=== PATIENT | male | born 1980 | race Caucasian/White ===

== ENCOUNTER 2018-01-18 20:33 | Emergency (ER) | payer OTHER ==
[2018-01-18 20:45] VITALS: BP 106/74; PULSE 67; RESP 16; TEMP 97.9
[2018-01-18] MEDS ORDERED: predniSONE 20 MG TAB PO STA (21:13)
[2018-01-18] MEDS ORDERED: IBUPROFEN 800 MG TAB PO STA (21:13)
--- NOTE | 2018-01-18 21:18 | ED ---
General Adult HPI - General Chief complaint: Extremity Problem,Nontraumatic Stated complaint: arm numbness Time Seen by Provider: 01/18/18 20:42 Source: patient, RN notes reviewed, old records reviewed Mode of arrival: ambulatory Limitations: no limitations - History of Present Illness Initial comments: This is a 29-year-old male to the ER with right elbow pain right arm swelling. Patient has no other medical issues medical injury. 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 Patient states he started to develop right elbow pain. No modifying factors for injury, no trauma - Related Data Previous Rx's Medication Instructions Recorded HYDROcodone/APAP 5-325MG [[place] 5] 1 each PO Q4HR PRN #15 tab 01/10/15 Ibuprofen [Motrin] 600 mg PO Q6HR PRN #30 01/10/15 Ibuprofen [Motrin] 600 mg PO Q8HR #60 tab 01/18/18 predniSONE 50 mg PO DAILY #5 tab 01/18/18 Allergies Allergy/AdvReac Type Severity Reaction Status Date / Time No Known Allergies Allergy Verified 01/18/18 20:45 Review of Systems ROS Statement: Those systems with pertinent positive or pertinent negative responses have been documented in the HPI. ROS Other: All systems not noted in ROS Statement are negative. Past Medical History Past Medical History: No Reported History Additional Past Medical History / Comment(s): chronic back pain History of Any Multi-Drug Resistant Organisms: None Reported Past Surgical History: No Surgical Hx Reported Past Psychological History: No Psychological Hx Reported Smoking Status: Current every day smoker Past Alcohol Use History: Occasional Past Drug Use History: None Reported General Exam Limitations: no limitations General appearance: alert, in no apparent distress Head exam: Present: atraumatic, normocephalic, normal inspection Eye exam: Present: normal appearance, PERRL, EOMI. Absent: scleral icterus, conjunctival injection, periorbital swelling ENT exam: Present: normal exam, mucous membranes moist Neck exam: Present: normal inspection. Absent: tenderness, meningismus, lymphadenopathy Respiratory exam: Present: normal lung sounds bilaterally. Absent: respiratory distress, wheezes, rales, rhonchi, stridor Cardiovascular Exam: Present: regular rate, normal rhythm, normal heart sounds. Absent: systolic murmur, diastolic murmur, rubs, gallop, clicks GI/Abdominal exam: Present: soft, normal bowel sounds. Absent: distended, tenderness, guarding, rebound, rigid Extremities exam: Present: normal inspection, full ROM, normal capillary refill. Absent: tenderness, pedal edema, joint swelling, calf tenderness Back exam: Present: normal inspection Neurological exam: Present: alert, oriented X3, CN II-XII intact Psychiatric exam: Present: normal affect, normal mood Skin exam: Present: warm, dry, intact, normal color. Absent: rash Course Vital Signs 01/18/18 20:41 Temperature 97.9 F Pulse Rate 67 Respiratory 16 Rate Blood Pressure 106/74 O2 Sat by Pulse 98 Oximetry Medical Decision Making - Medical Decision Making 37 male the ER for evaluation of right elbow injury, patient does have to sign out elbow, no trauma noted x-ray negative. Patient will be discharged home - Radiology Data Radiology results: report reviewed (X-ray right elbow negative), image reviewed Disposition Clinical Impression: Golfers elbow of right upper extremity, Right tennis elbow Disposition: HOME SELF-CARE Condition: Good Instructions: Tennis Elbow (ED), Tendinitis (ED) Prescriptions: Ibuprofen [Motrin] 600 mg PO Q8HR #60 tab predniSONE 50 mg PO DAILY #5 tab Is patient prescribed a controlled substance at d/c from ED?: No Referrals: None,Stated [Primary Care Provider] - 1-2 days
--- NOTE | 2018-01-18 21:40 | XR ---
EXAMINATION TYPE: XR elbow complete RT DATE OF EXAM: 01/18/2018 COMPARISON: NONE HISTORY: Elbow pain TECHNIQUE: 3 views FINDINGS: I see no fracture nor dislocation. Joint spaces are normal. There is no sign of elbow joint effusion. IMPRESSION: Negative right elbow exam.
== END 2018-01-18 22:00 | disposition home or self-care (01) ==
LOC: EC 20:33
DX: M77.01 Medial epicondylitis, right elbow (principal); M77.11 Lateral epicondylitis, right elbow; F17.200 Nicotine dependence, unspecified, uncomplicated
CPT/HCPCS: 73080; 99284; J7512

== ENCOUNTER 2018-08-17 22:08 | Emergency (ER) | payer OTHER ==
[2018-08-17] MEDS: SODIUM CHLORIDE 0.9% 500 ML 500 ML IV SCH (22:59)
[2018-08-17] MEDS: PIPERACILLIN-TAZOBACTAM 3.375 GM in SODIUM CHLORIDE 0.9% 100 ML IVPB STA (22:59)
[2018-08-17 23:01] LABS: Basophils # (A) 0.1 k/uL (0-0.2); Basophils % (A) 0 %; Eosinophils # (A) 0.1 k/uL (0-0.7); Eosinophils % (A) 0 %; HCT 48.7 % (39.0-53.0); HGB 16.4 gm/dL (13.0-17.5); Lymphocytes # (A) 1.3 k/uL (1.0-4.8); Lymphocytes % (A) 6 %; MCH 30.4 pg (25.0-35.0); MCHC 33.6 g/dL (31.0-37.0); MCV 90.4 fL (80.0-100.0); Mean Platelet Volume 6.5; Monocytes # (A) 1.2 k/uL (0-1.0); Monocytes % (A) 5 %; Neutrophils # (A) 20.5 k/uL (1.3-7.7); Neutrophils % (A) 87 %; Platelet Count 291 k/uL (150-450); RBC 5.39 m/uL (4.30-5.90); RDW 13.4 % (11.5-15.5); WBC 23.4 k/uL (3.8-10.6)
--- NOTE | 2018-08-17 23:08 | ED ---
General Adult HPI - General Source: patient, RN notes reviewed, old records reviewed Mode of arrival: ambulatory Limitations: no limitations <Gilbert Chin - Last Filed: 08/17/18 23:44> <Mindi Hill - Last Filed: 08/18/18 00:14> - General Chief complaint: Urogenital Stated complaint: Male , groin pain Time Seen by Provider: 08/17/18 22:22 - History of Present Illness Initial comments: 38-year-old male patient with no pertinent past medical history presents to ED with painful mass in scrotum. Patient reports that approximately 2 days ago he felt as if he has a pimple scrotum, patient reports digit vigorously until blood. Patient reports that today he had significant swelling, discharge and his left hemiscrotal region. Patient reports he has an additional area of swelling in his right posterior scrotal region. Patient also reports complaint of left inguinal pain. Patient does deny any dysuria. Patient reports that he has had fevers and chills. Patient denies any nausea vomiting diarrhea abdominal pain chest pain shortness breath. Patient denies other complaints. Systemic: Pt denies fatigue, myalgia, rash. Pt denies weakness, night sweats, weight loss. Neuro: Pt denies headache, visual disturbances, syncope or pre-syncope. HEENT: Pt denies ocular discharge or irritation, otalgia, rhinorrhea, pharyngitis or notable lymphadenopathy. Cardiopulmonary: Pt denies chest pain, SOB, heart palpitations, dyspnea on exertion. Abdominal/GI: Pt denies abdominal pain, n/v/d. : Pt denies dysuria, burning w/ urination, frequency/urgency. Denies new onset urinary or bowel incontinence. MSK: Pt denies myalgia, loss of strength or function in extremities. Neuro: Pt denies new onset weakness, paresthesias. (Gilbert Chin) - Related Data Home Medications Medication Instructions Recorded Confirmed Aspirin 325 mg PO ONCE PRN 08/17/18 08/17/18 Allergies Allergy/AdvReac Type Severity Reaction Status Date / Time No Known Allergies Allergy Verified 08/17/18 22:28 Review of Systems ROS Other: All systems not noted in ROS Statement are negative. <Gilbert Chin - Last Filed: 08/17/18 23:44> ROS Other: All systems not noted in ROS Statement are negative. <Mindi Hill - Last Filed: 08/18/18 00:14> ROS Statement: Those systems with pertinent positive or pertinent negative responses have been documented in the HPI. Past Medical History Past Medical History: No Reported History Additional Past Medical History / Comment(s): chronic back pain History of Any Multi-Drug Resistant Organisms: None Reported Past Surgical History: No Surgical Hx Reported Past Psychological History: No Psychological Hx Reported Smoking Status: Current every day smoker Past Alcohol Use History: Occasional Past Drug Use History: None Reported <Gilbert Chin - Last Filed: 08/17/18 23:44> General Exam Limitations: no limitations <Gilbert Chin - Last Filed: 08/17/18 23:44> - General Exam Comments Initial Comments: Constitutional: NAD, AOX3, Pt has pleasant affect. HEENT: NC/AT, trachea midline, neck supple, no lymphadenopathy. Posterior pharynx non erythematous, without exudates. External ears appear normal, without discharge. Mucous membranes moist. Eyes PERRLA, EOM intact. There is no scleral icterus. No pallor noted. Cardiopulmonary: RRR, no murmurs, rubs or gallops, no JVD noted. Lungs CTAB in anterior and posterior castro. No peripheral edema. Abdominal exam: Abdomen soft and non-distended. Abdomen non-tender to palpation in all 4 quadrants. Bowel sounds active in LLQ. No hepatosplenomegaly. No ecchymosis Neuro: CN II-XII grossly intact. No nuchal rigidity. MSK: No posterior calf tenderness bilaterally, homans sign negative bilaterally. Posterior tibialis and radial pulse +2 bilaterally. Sensation intact in upper and lower extremities. Full active ROM in upper and lower extremities, 5/5 stregnth. : erythematous mass with open ulceration and purulent drainage on L hemisc rotal region approximately 3x3 cm. L inguinal tenderness. 2x2 cm erythematous mass noted in R posterior scrotal region. No testicular tenderness. No drainage or discharge from penis, no ulcerations. (Gilbert Chin) Course Vital Signs 08/17/18 08/17/18 22:16 23:07 Temperature 99.5 F Pulse Rate 127 H 105 H Respiratory 28 H 18 Rate Blood Pressure 131/86 148/101 O2 Sat by Pulse 98 99 Oximetry Medical Decision Making - Lab Data Result diagrams: 08/17/18 22:40 08/17/18 22:40 <Gilbert Chin - Last Filed: 08/17/18 23:44> - Lab Data Result diagrams: 08/17/18 22:40 08/17/18 22:40 <Supa Hillssica Mary Kay - Last Filed: 08/18/18 00:14> - Medical Decision Making 38-year-old male patient with no pertinent past medical history presents to ED with painful mass in scrotum. Patient reports that approximately 2 days ago he felt as if he has a pimple scrotum, patient reports digit vigorously until blood. Patient reports that today he had significant swelling, discharge and his left hemiscrotal region. Patient reports he has an additional area of swelling in his right posterior scrotal region. Patient also reports complaint of left inguinal pain. Patient does deny any dysuria. Patient reports that he has had fevers and chills. Patient denies any nausea vomiting diarrhea abdominal pain chest pain shortness breath. Patient denies other complaints. Patient vital signs displayed mild tachycardia, afebrile. Physical exam displayed: erythematous mass with open ulceration and purulent drainage on L hemiscrotal region approximately 3x3 cm. L inguinal tenderness. 2x2 cm erythematous mass noted in R posterior scrotal region. No testicular tenderness. No drainage or discharge from penis, no ulcerations. Laboratory investigations revealed a leukocytosis of 23.4. Coagulation studies within normal limits. CMP noncompressive. Lactic acid mildly elevated at 2.3. Blood cultures obtained and pending. CT abdomen pelvis with contrast displayed soft tissue swelling since induration involving left scrotum/hernia, and soft tissue edema/fluid. Probable abdominal lymph nodes with adjacent stranding. Thickened under distended bladder, correlate for cystitis. Patient started on IV antibiotics Zosyn and any mycin. Patient is to 2 L normal saline. [facility] be [facility] to [facility]. Case discussed and absent patient seen by Dr. Hill. Patient signed out Dr. Hill pending transfer. (Gilbert Chin) I saw and evaluated patient, agree with the plan for septic workup. Physical exam is concerning for significant scrotal cellulitis with no evidence of free air or crepitance on physical exam. Broad-spectrum antibiotics were ordered. Labs resulted with profound leukocytosis, lactic acidosis and mildly elevated glucose. This is consistent with the patient's significant infection. Computed tomography scan results and would significant scrotal wall edema and signs of infection with no free air or signs of 4 days gangrene at this time. Patient care was discussed with urology on-call doctor Evaristo who recommends patient be transferred to outside facility for further surgical intervention. Patient care was discussed with ER physician Dr. Estbean at [facility] who accepts the transfer. . She was updated on findings. Patient remained hemodynamically stable, afebrile, tachycardia improving after IV fluids and antibiotics. (Mindi Hill) - Lab Data Lab Results 08/17/18 08/17/18 08/17/18 Range/Units 22:40 22:40 22:40 WBC 23.4 H (3.8-10.6) k/uL RBC 5.39 (4.30-5.90) m/uL Hgb 16.4 (13.0-17.5) gm/dL Hct 48.7 (39.0-53.0) % MCV 90.4 (80.0-100.0) fL MCH 30.4 (25.0-35.0) pg MCHC 33.6 (31.0-37.0) g/dL RDW 13.4 (11.5-15.5) % Plt Count 291 (150-450) k/uL Neutrophils % 87 % Lymphocytes % 6 % Monocytes % 5 % Eosinophils % 0 % Basophils % 0 % Neutrophils # 20.5 H (1.3-7.7) k/uL Lymphocytes # 1.3 (1.0-4.8) k/uL Monocytes # 1.2 H (0-1.0) k/uL Eosinophils # 0.1 (0-0.7) k/uL Basophils # 0.1 (0-0.2) k/uL PT (9.0-12.0) sec INR (<1.2) APTT (22.0-30.0) sec Sodium 136 L (137-145) mmol/L Potassium 4.5 (3.5-5.1) mmol/L Chloride 97 L (98-107) mmol/L Carbon Dioxide 24 (22-30) mmol/L Anion Gap 15 mmol/L BUN 13 (9-20) mg/dL Creatinine 0.84 (0.66-1.25) mg/dL Est GFR (CKD-EPI)AfAm >90 (>60 ml/min/1.73 sqM) Est GFR (CKD-EPI)NonAf >90 (>60 ml/min/1.73 sqM) Glucose 140 H (74-99) mg/dL Plasma Lactic Acid Osei 2.3 H* (0.7-2.0) mmol/L Calcium 9.8 (8.4-10.2) mg/dL Total Bilirubin 1.1 (0.2-1.3) mg/dL AST 24 (17-59) U/L ALT 24 (21-72) U/L Alkaline Phosphatase 88 (38-126) U/L Total Protein 7.5 (6.3-8.2) g/dL Albumin 4.4 (3.5-5.0) g/dL 08/17/18 Range/Units 22:40 WBC (3.8-10.6) k/uL RBC (4.30-5.90) m/uL Hgb (13.0-17.5) gm/dL Hct (39.0-53.0) % MCV (80.0-100.0) fL MCH (25.0-35.0) pg MCHC (31.0-37.0) g/dL RDW (11.5-15.5) % Plt Count (150-450) k/uL Neutrophils % % Lymphocytes % % Monocytes % % Eosinophils % % Basophils % % Neutrophils # (1.3-7.7) k/uL Lymphocytes # (1.0-4.8) k/uL Monocytes # (0-1.0) k/uL Eosinophils # (0-0.7) k/uL Basophils # (0-0.2) k/uL PT 9.6 (9.0-12.0) sec INR 0.9 (<1.2) APTT 24.3 (22.0-30.0) sec Sodium (137-145) mmol/L Potassium (3.5-5.1) mmol/L Chloride (98-107) mmol/L Carbon Dioxide (22-30) mmol/L Anion Gap mmol/L BUN (9-20) mg/dL Creatinine (0.66-1.25) mg/dL Est GFR (CKD-EPI)AfAm (>60 ml/min/1.73 sqM) Est GFR (CKD-EPI)NonAf (>60 ml/min/1.73 sqM) Glucose (74-99) mg/dL Plasma Lactic Acid Osei (0.7-2.0) mmol/L Calcium (8.4-10.2) mg/dL Total Bilirubin (0.2-1.3) mg/dL AST (17-59) U/L ALT (21-72) U/L Alkaline Phosphatase (38-126) U/L Total Protein (6.3-8.2) g/dL Albumin (3.5-5.0) g/dL Disposition - Out of Hospital Transfer - Req. Specs Out of Hospital Transfer - Requested Specifics: Other Emergency Center <Gilbert Chin - Last Filed: 08/17/18 23:44> <Mindi Hill - Last Filed: 08/18/18 00:14> Clinical Impression: Abscess Disposition: OTHER INSTITUTION NOT DEFINED Condition: Critical Referrals: None,Stated [Primary Care Provider] - 1-2 days
[2018-08-17 23:09] LABS: INR 0.9 (<1.2); Partial Thromboplastin Time 24.3 sec (22.0-30.0); Prothrombin Time 9.6 sec (9.0-12.0)
[2018-08-17 23:15] LABS: ALT 24 U/L (21-72); AST 24 U/L (17-59); Albumin 4.4 g/dL (3.5-5.0); Alkaline Phosphatase 88 U/L (38-126); Anion Gap 15 mmol/L; Blood Urea Nitrogen 13 mg/dL (9-20); Calcium 9.8 mg/dL (8.4-10.2); Carbon Dioxide 24 mmol/L (22-30); Chloride 97 mmol/L (98-107); Glucose 140 mg/dL (74-99); Potassium 4.5 mmol/L (3.5-5.1); Sodium 136 mmol/L (137-145); Total Bilirubin 1.1 mg/dL (0.2-1.3); Total Protein 7.5 g/dL (6.3-8.2)
[2018-08-17] MEDS: MORPHINE SULFATE 4 MG/ML SYRINGE IVP STA (23:30)
[2018-08-17] MEDS: CLINDAMYCIN 900 MG in DEXTROSE 5% IN WATER 50 ML IVPB STA ×2 (23:33)
--- NOTE | 2018-08-17 23:42 | CT ---
EXAM: CT Abdomen and Pelvis With Intravenous Contrast CLINICAL HISTORY: ITS.REASON CT Reason: Pain TECHNIQUE: Axial computed tomography images of the abdomen and pelvis with intravenous contrast. CTDI is 10.4 mGy and DLP is 806.8 mGy-cm. This CT exam was performed using one or more of the following dose reduction techniques: automated exposure control, adjustment of the mA and/or kV according to patient size, and/or use of iterative reconstruction technique. COMPARISON: No relevant prior studies available. FINDINGS: Lung bases: No acute findings. ABDOMEN: Liver: Unremarkable. Gallbladder and bile ducts: Unremarkable. Pancreas: Unremarkable. Spleen: Unremarkable. Adrenals: Unremarkable. Kidneys and ureters: No hydronephrosis. Stomach and bowel: Fluid in small bowel loops, nonspecific, can be seen with enteritis in the appropriate clinical setting. No evidence of bowel obstruction. PELVIS: Appendix: Normal caliber appendix. Bladder: Thickened underdistended bladder. Reproductive: Unremarkable as visualized. ABDOMEN and PELVIS: Intraperitoneal space: No free air. No significant fluid collection. Bones/joints: No acute fracture. Soft tissues: Soft tissue swelling/induration involving the left scrotum/perineum with prominent soft tissue edema/fluid. Prominent left inguinal lymph nodes with adjacent stranding. Small fat-containing umbilical hernia. Vasculature: Unremarkable. Lymph nodes: Small nonspecific mesenteric and retroperitoneal lymph nodes. IMPRESSION: 1. Soft tissue swelling/induration involving the left scrotum/perineum with prominent soft tissue edema/fluid. Prominent left inguinal lymph nodes with adjacent stranding. Findings raise possibility of inflammatory/infectious process in the appropriate clinical setting, with early abscess not excluded. 2. Fluid in small bowel loops, nonspecific, can be seen with enteritis in the appropriate clinical setting. 3. Thickened underdistended bladder. Correlate with urinalysis for cystitis.
[2018-08-17] MEDS ORDERED: VANCOMYCIN IV PER PHARMACY 1 EACH MISC MISCELLANE PRN (23:48)
[2018-08-18 00:32] LABS: Appearance,Urine Clear (Clear); Bilirubin,Urine Negative (Negative); Blood,Urine Negative (Negative); Color,Urine Yellow; Glucose,Urine (UA) Negative (Negative); Ketones,Urine Negative (Negative); Leukocyte Esterase,Urine Negative (Negative); Nitrite,Urine Negative (Negative); Protein,Urine 1+ (Negative); RBC,Urine 9 /hpf (0-5); Squamous Epithelial Cell,Urine <1 /hpf (0-4); Urobilinogen,Urine <2.0 mg/dL (<2.0); WBC,Urine 1 /hpf (0-5)
[2018-08-18 00:34] LABS: Specific Gravity,Urine >1.050 (1.001-1.035)
[2018-08-18] MEDS: VANCOMYCIN 1,250 MG in SODIUM CHLORIDE 0.9% 250 ML IVPB STA (00:53)
[2018-08-18 00:56] VITALS: BP 133/83; PULSE 105; RESP 18; TEMP 101.2
[2018-08-18] MEDS: ACETAMINOPHEN TAB 500 MG TAB PO STA (01:00)
[2018-08-18] MEDS ORDERED: VANCOMYCIN 1,250 MG in SODIUM CHLORIDE 0.9% 250 ML IVPB SCH (13:00)
== END 2018-08-18 01:00 | disposition other institution (70) ==
LOC: EC 22:08
DX: N49.2 Inflammatory disorders of scrotum (principal); E87.2 Acidosis; F17.200 Nicotine dependence, unspecified, uncomplicated
CPT/HCPCS: 36415; 93005; 80053; 83605; 85025; 85610; 85730; 87040; 74177; 99285; 96365; 96366; 96368; 96375; J2543; J2270; Q9967; 81001; 87086

== ENCOUNTER 2018-11-06 15:03 | Emergency (ER) | payer OTHER ==
[2018-11-06 15:51] VITALS: BP 112/76; PULSE 72; RESP 16; TEMP 97.7
--- NOTE | 2018-11-06 17:46 | ED ---
General Adult HPI - General Chief complaint: Skin/Abscess/Foreign Body Stated complaint: Abscess behind ear Time Seen by Provider: 11/06/18 16:55 Source: patient Mode of arrival: wheelchair Limitations: no limitations - History of Present Illness Initial comments: Patient is a 38-year-old male presenting to emergency department with an abscess in the left temporal region posterior to the ear. Patient reports the lesion started roughly a week ago and has peaked in size about 2 days ago and has been slowly draining. Patient reports the discharge is "clear whitish" in color. Patient reports pain at the site of lesion with slight radiation along the left mandible. Patient reports the pain is exacerbated with hot showers. Patient denies taking any medication to alleviate the pain. Patient denies fever, nausea, vomiting. Patient denies any headaches, lightheadedness, dizziness. - Related Data Home Medications Medication Instructions Recorded Confirmed Aspirin 325 mg PO ONCE PRN 08/17/18 08/17/18 Previous Rx's Medication Instructions Recorded Sulfamethox-Tmp 800-160Mg [Bactrim 1 each PO Q12HR #20 tab 11/06/18 Ds] Allergies Allergy/AdvReac Type Severity Reaction Status Date / Time No Known Allergies Allergy Verified 11/06/18 15:47 Review of Systems ROS Statement: Those systems with pertinent positive or pertinent negative responses have been documented in the HPI. ROS Other: All systems not noted in ROS Statement are negative. Past Medical History Past Medical History: No Reported History Additional Past Medical History / Comment(s): chronic back pain History of Any Multi-Drug Resistant Organisms: None Reported Past Surgical History: No Surgical Hx Reported Past Psychological History: No Psychological Hx Reported Smoking Status: Current every day smoker Past Alcohol Use History: Occasional Past Drug Use History: None Reported General Exam Limitations: no limitations General appearance: alert, in no apparent distress Head exam: Present: other (2 cm x 1 cm abscess on the left temporal region posterior to the left ear.) Eye exam: Present: normal appearance, PERRL, EOMI Pupils: Present: normal accommodation Neck exam: Present: normal inspection Respiratory exam: Present: normal lung sounds bilaterally Cardiovascular Exam: Present: regular rate, normal rhythm, normal heart sounds Extremities exam: Present: normal inspection, full ROM Back exam: Present: normal inspection Neurological exam: Present: alert, oriented X3 Psychiatric exam: Present: normal affect, normal mood Skin exam: Present: warm, intact, normal color, rash (Abscess the left temporal lobe) Course Vital Signs 11/06/18 15:47 Temperature 97.7 F Pulse Rate 72 Respiratory 16 Rate Blood Pressure 112/76 O2 Sat by Pulse 98 Oximetry Procedures - Incision & Drainage Consent Obtained: verbal consent Site: scalp (Left temporal region posterior to the left ear.) I&D Cleaning Method: Alcohol Wipe Needle Aspiration Performed?: Yes (18-gauge) I&D Drainage Obtained: Pus, Blood Culture Obtained?: No Patient Tolerated Procedure: well Medical Decision Making - Medical Decision Making Patient is a 38-year-old male presents emergency department with an abscess in the left lateral region. I drained the abscess and prescribed the patient a 10 day course of Bactrim. Patient advised to follow-up with primary care. Patient advised to return to emergency department if symptoms worsen. Case discussed with physician. Disposition Clinical Impression: Abscess Disposition: HOME SELF-CARE Condition: Stable Instructions (If sedation given, give patient instructions): Abscess Incision and Drainage (ED) Additional Instructions: Please take prescribed medication as directed. Please follow-up with primary care. Please return to emergency department if symptoms worsen. Is patient prescribed a controlled substance at d/c from ED?: No Referrals: None,Stated [Primary Care Provider] - 1-2 days Time of Disposition: 17:46
[2018-11-06] MEDS ORDERED: Acetaminophen-Codeine 300-30mg TAB PO STA (17:53)
== END 2018-11-06 18:00 | disposition home or self-care (01) ==
LOC: EC 15:03
DX: L02.01 Cutaneous abscess of face (principal); F17.200 Nicotine dependence, unspecified, uncomplicated
CPT/HCPCS: 10160; 99282

== ENCOUNTER 2019-08-03 15:22 | Emergency (ER) | payer OTHER ==
[2019-08-03 15:26] VITALS: BP 130/83; PULSE 63; RESP 20; TEMP 97.6
--- NOTE | 2019-08-03 15:42 | ED ---
General Adult HPI - General Chief complaint: Eye Problems Stated complaint: eye problems Time Seen by Provider: 08/03/19 15:27 Source: patient, RN notes reviewed Mode of arrival: ambulatory Limitations: no limitations - History of Present Illness Initial comments: 39-year-old male presents to the emergency department for right eye irritation. Patient states he thinks he has had a stye on his right eye for 2 days. Patient states that yesterday it was crusting somewhat but has since improved. He is not sure if he needs it drained. States that his friend told him he had had to have a stye drained before. Patient denies any visual changes. Denies any pain with movement of the right eye. States the only pain is on the lower eyelid. Patient has not tried warm compresses but has been squeezing the area.Patient has no other complaints at this time including shortness of breath, chest pain, abdominal pain, nausea or vomiting, headache, or visual changes. - Related Data Home Medications Medication Instructions Recorded Confirmed Aspirin 325 mg PO ONCE PRN 08/17/18 08/17/18 Previous Rx's Medication Instructions Recorded Sulfamethox-Tmp 800-160Mg [Bactrim 1 each PO Q12HR #20 tab 11/06/18 Ds] Erythromycin Ophth Oint [Romycin 1 applic RIGHT EYE QID 7 Days #20 08/03/19 Ophth Oint] gm Allergies Allergy/AdvReac Type Severity Reaction Status Date / Time No Known Allergies Allergy Verified 08/03/19 15:26 Review of Systems ROS Statement: Those systems with pertinent positive or pertinent negative responses have been documented in the HPI. ROS Other: All systems not noted in ROS Statement are negative. Past Medical History Past Medical History: No Reported History Additional Past Medical History / Comment(s): chronic back pain History of Any Multi-Drug Resistant Organisms: None Reported Past Surgical History: No Surgical Hx Reported Past Psychological History: No Psychological Hx Reported Smoking Status: Current every day smoker Past Alcohol Use History: Occasional Past Drug Use History: Marijuana General Exam Limitations: no limitations General appearance: alert, in no apparent distress Head exam: Present: atraumatic, normocephalic, normal inspection Eye exam: Present: PERRL, EOMI. Absent: scleral icterus, conjunctival injection, periorbital swelling Expanded Eyelids: Normal Inspection: Left, Stye: Right (lower lid) Pupils: Regular, Round: Bilateral Sclera/Conjunctival: Normal Inspection: Bilateral ENT exam: Present: normal exam, mucous membranes moist Neck exam: Present: normal inspection, full ROM. Absent: tenderness, meningismus, lymphadenopathy Respiratory exam: Present: normal lung sounds bilaterally. Absent: respiratory distress, wheezes, rales, rhonchi, stridor Cardiovascular Exam: Present: regular rate, normal rhythm, normal heart sounds. Absent: systolic murmur, diastolic murmur, rubs, gallop, clicks Course Vital Signs 08/03/19 15:23 Temperature 97.6 F Pulse Rate 63 Respiratory 20 Rate Blood Pressure 130/83 O2 Sat by Pulse 98 Oximetry Medical Decision Making - Medical Decision Making Physical exam reveals a small stye on the right lower eyelid. This is tender to palpation. There is no surrounding erythema or edema. No evidence of preseptal cellulitis. No pain with extraocular movements. Denies visual changes. Conjunctiva is normal in appearance. Discussed warm compresses the patient. Patient will be given topical antibiotics. At this point does not require oral antibiotics as there is no evidence of cellulitis. However I did discussed monitoring for this and returning with any worsening symptoms. Disposition Clinical Impression: Hordeolum Disposition: HOME SELF-CARE Condition: Good Instructions (If sedation given, give patient instructions): Diana (ED) Additional Instructions: Please apply warm compresses to the right eye several times daily. Use antibiotic ointment as directed. Monitor for worsening symptoms and return if these occur. This would include spreading redness or swelling of the right eye. Follow-up with primary care in 1-2 days. Prescriptions: Erythromycin Ophth Oint [Romycin Ophth Oint] 1 applic RIGHT EYE QID 7 Days #20 gm Is patient prescribed a controlled substance at d/c from ED?: No Referrals: Satinder Boss MD [REFERRING] - 1-2 days Time of Disposition: 15:41
== END 2019-08-03 15:45 | disposition home or self-care (01) ==
LOC: EC 15:22
DX: H00.012 Hordeolum externum right lower eyelid (principal); F17.200 Nicotine dependence, unspecified, uncomplicated
CPT/HCPCS: 99283

== ENCOUNTER 2019-11-24 08:50 | Emergency (ER) | payer OTHER ==
[2019-11-24 08:59] VITALS: BP 134/91; PULSE 87; RESP 18; TEMP 98.5
--- NOTE | 2019-11-24 09:13 | ED ---
Skin/Abscess/FB HPI - General Chief complaint: Skin/Abscess/Foreign Body Stated complaint: poss scabies Time Seen by Provider: 11/24/19 08:59 Source: patient, RN notes reviewed Mode of arrival: ambulatory Limitations: no limitations - History of Present Illness Initial comments: 3-year-old male presents emergency Department chief complaint of rash. Patient states it started last week or so. Patient states her small bumps that are itchy especially at nighttime. Patient has no pain denies any new soaps lotions detergents. Patient states that he had some he states also had similar rash and now seems to have spread. Patient denies any other complaints. Patient has no difficulty breathing. NO KNOWN DRUG ALLERGIES. - Related Data Home Medications Medication Instructions Recorded Confirmed Aspirin 325 mg PO ONCE PRN 08/17/18 08/17/18 Previous Rx's Medication Instructions Recorded Sulfamethox-Tmp 800-160Mg [Bactrim 1 each PO Q12HR #20 tab 11/06/18 Ds] Erythromycin Ophth Oint [Romycin 1 applic RIGHT EYE QID 7 Days #20 08/03/19 Ophth Oint] gm Permethrin 5% Cream [Elimite] 1 applic TOPICAL ONCE #60 gram 11/24/19 Allergies Allergy/AdvReac Type Severity Reaction Status Date / Time No Known Allergies Allergy Verified 11/24/19 08:53 Review of Systems ROS Statement: Those systems with pertinent positive or pertinent negative responses have been documented in the HPI. ROS Other: All systems not noted in ROS Statement are negative. Past Medical History Past Medical History: No Reported History Additional Past Medical History / Comment(s): chronic back pain History of Any Multi-Drug Resistant Organisms: None Reported Past Surgical History: No Surgical Hx Reported Past Psychological History: No Psychological Hx Reported Smoking Status: Current every day smoker Past Alcohol Use History: Occasional Past Drug Use History: Marijuana General Exam Limitations: no limitations General appearance: alert, in no apparent distress Head exam: Present: atraumatic, normocephalic, normal inspection Eye exam: Present: normal appearance, PERRL, EOMI. Absent: scleral icterus, conjunctival injection, periorbital swelling ENT exam: Present: normal exam, normal oropharynx, mucous membranes moist Neck exam: Present: normal inspection, full ROM. Absent: tenderness, meningismus, lymphadenopathy Respiratory exam: Present: normal lung sounds bilaterally. Absent: respiratory distress, wheezes, rales, rhonchi, stridor Cardiovascular Exam: Present: regular rate, normal rhythm, normal heart sounds. Absent: systolic murmur, diastolic murmur, rubs, gallop, clicks Skin exam: Present: warm, dry, intact, normal color, rash (Fine small macular papular erythematous rash) Course Vital Signs 11/24/19 08:54 Temperature 98.5 F Pulse Rate 87 Respiratory 18 Rate Blood Pressure 134/91 O2 Sat by Pulse 98 Oximetry Medical Decision Making - Medical Decision Making Patient presented for rash. Patient has diffuse rash with some excoriations. Patient symptoms may be related to scabies will be treated otherwise I see no signs of bacterial or viral infection. Patient will follow-up return for any worsening symptoms. Disposition Clinical Impression: Acute maculopapular rash Disposition: HOME SELF-CARE Condition: Stable Instructions (If sedation given, give patient instructions): Scabies (ED) Additional Instructions: Please return to the Emergency Department if symptoms worsen or any other concerns. Prescriptions: Permethrin 5% Cream [Elimite] 1 applic TOPICAL ONCE #60 gram Is patient prescribed a controlled substance at d/c from ED?: No Referrals: None,Stated [Primary Care Provider] - 1-2 days Time of Disposition: 09:13
== END 2019-11-24 09:40 | disposition home or self-care (01) ==
LOC: EC 08:50
DX: R21 Rash and other nonspecific skin eruption (principal); F17.200 Nicotine dependence, unspecified, uncomplicated
CPT/HCPCS: 99282

== ENCOUNTER 2020-02-27 14:46 | Emergency (ER) | payer OTHER ==
[2020-02-27 15:09] VITALS: PULSE 101; RESP 18; TEMP 98.8
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
== END 2020-02-27 15:44 | disposition home or self-care (01) ==
LOC: EC 14:46
DX: S00.81XA Abrasion of other part of head, initial encounter (principal); F17.200 Nicotine dependence, unspecified, uncomplicated; W18.09XA Striking against other object with subsequent fall, initial encounter
CPT/HCPCS: 99283

== ENCOUNTER 2020-04-21 14:40 | Emergency (ER) | payer OTHER ==
[2020-04-21 14:51] VITALS: BP 124/92; PULSE 86; RESP 18; TEMP 98
--- NOTE | 2020-04-21 16:02 | ED ---
General Adult HPI - General Chief complaint: Recheck/Abnormal Lab/Rx Stated complaint: Wants COVID Test Time Seen by Provider: 04/21/20 15:31 Source: patient, RN notes reviewed Mode of arrival: ambulatory Limitations: no limitations - History of Present Illness Initial comments: 39-year-old male with a past medical history of chronic back pain presents to the emergency room for a Coban test. 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 Patient is denying cough although this is documented in the triage note. Denies shortness of breath. Denies fevers or chills. States he feels fine aside from a runny nose that he believes is related to his seasonal ALLERGIES.Patient has no other complaints at this time including shortness of breath, chest pain, abdominal pain, nausea or vomiting, headache, or visual changes. - Related Data Home Medications Medication Instructions Recorded Confirmed Aspirin 325 mg PO ONCE PRN 08/17/18 08/17/18 Previous Rx's Medication Instructions Recorded Sulfamethox-Tmp 800-160Mg [Bactrim 1 each PO Q12HR #20 tab 11/06/18 Ds] Erythromycin Ophth Oint [Romycin 1 applic RIGHT EYE QID 7 Days #20 08/03/19 Ophth Oint] gm Permethrin 5% Cream [Elimite] 1 applic TOPICAL ONCE #60 gram 11/24/19 Mupirocin 2% Oint [Bactroban 2% 1 applic TOPICAL BID 5 Days #1 tube 02/27/20 Oint] Allergies Allergy/AdvReac Type Severity Reaction Status Date / Time No Known Allergies Allergy Verified 04/21/20 14:52 Review of Systems ROS Statement: Those systems with pertinent positive or pertinent negative responses have been documented in the HPI. ROS Other: All systems not noted in ROS Statement are negative. Past Medical History Past Medical History: No Reported History Additional Past Medical History / Comment(s): chronic back pain History of Any Multi-Drug Resistant Organisms: None Reported Past Surgical History: No Surgical Hx Reported Past Psychological History: No Psychological Hx Reported Smoking Status: Current some day smoker Past Alcohol Use History: Occasional Past Drug Use History: Marijuana General Exam Limitations: no limitations General appearance: alert, in no apparent distress Head exam: Present: atraumatic, normocephalic, normal inspection Eye exam: Present: normal appearance, PERRL, EOMI. Absent: scleral icterus, conjunctival injection, periorbital swelling ENT exam: Present: normal exam, normal oropharynx, mucous membranes moist, TM's normal bilaterally, normal external ear exam Neck exam: Present: normal inspection, full ROM. Absent: tenderness, meningismus, lymphadenopathy Respiratory exam: Present: normal lung sounds bilaterally. Absent: respiratory distress, wheezes, rales, rhonchi, stridor Cardiovascular Exam: Present: regular rate, normal rhythm, normal heart sounds. Absent: systolic murmur, diastolic murmur, rubs, gallop, clicks GI/Abdominal exam: Present: soft, normal bowel sounds. Absent: distended, tenderness, guarding, rebound, rigid Neurological exam: Present: alert Course Vital Signs 04/21/20 14:44 Temperature 98.0 F Pulse Rate 86 Respiratory 18 Rate Blood Pressure 124/92 O2 Sat by Pulse 98 Oximetry Medical Decision Making - Medical Decision Making Vitals are stable. Patient states he has rhinorrhea but denies any other symptoms. Physical exam is unremarkable. Rotavirus test is ordered. Patient will quarantine until that results. He will return here for any worsening symptoms. Disposition Clinical Impression: COVID-19 virus test result unknown Disposition: HOME SELF-CARE Condition: Good Instructions (If sedation given, give patient instructions): Rhinosinusitis (ED) Additional Instructions: Please quarantine until Covid results are back. Otherwise follow-up with your doctor in one to 2 days. Return to the emergency room for any worsening symptoms. Is patient prescribed a controlled substance at d/c from ED?: No Referrals: Satinder Boss MD [REFERRING] - 1-2 days Time of Disposition: 16:01
== END 2020-04-21 16:32 | disposition home or self-care (01) ==
LOC: EC 14:40
DX: J34.89 Other specified disorders of nose and nasal sinuses (principal); G89.29 Other chronic pain; M54.9 Dorsalgia, unspecified; F17.200 Nicotine dependence, unspecified, uncomplicated; Z20.828 Contact with and (suspected) exposure to other viral communicable diseases
CPT/HCPCS: 99282; U0003

== ENCOUNTER 2020-07-03 10:37 | Emergency (ER) | payer OTHER ==
[2020-07-03] MEDS ORDERED: KETOROLAC 15 MG/ML 1 ML VIAL IM STA (10:55)
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
--- NOTE | 2020-07-03 11:35 | XR ---
EXAMINATION TYPE: XR elbow complete LT DATE OF EXAM: 07/03/2020 COMPARISON: None HISTORY: Pain TECHNIQUE: Three-view left elbow FINDINGS: Radius aligns normally with the humerus. No acute fracture or dislocation is evident. Anter ior fat pad is normal. No elevation of posterior fat pad is evident. IMPRESSION: 1. Normal three-view left elbow. 2. Follow-up exams can be performed 7-10 days from acute trauma for continued pain
[2020-07-03 11:47] VITALS: RESP 16
[2020-07-03 12:19] VITALS: BP 119/81; PULSE 58; TEMP 97.9
== END 2020-07-03 12:19 | disposition home or self-care (01) ==
LOC: EC 10:37
DX: G56.22 Lesion of ulnar nerve, left upper limb (principal); G62.9 Polyneuropathy, unspecified; S50.812A Abrasion of left forearm, initial encounter; F17.200 Nicotine dependence, unspecified, uncomplicated; X58.XXXA Exposure to other specified factors, initial encounter
CPT/HCPCS: 73080; 96372; 99284; J1885

== ENCOUNTER 2020-08-06 16:00 | Emergency (ER) | payer BC ==
[2020-08-06 16:03] VITALS: BP 109/73; PULSE 71; RESP 18; TEMP 97.5
[2020-08-06] MEDS ORDERED: KETOROLAC 15 MG/ML 1 ML VIAL IM STA (16:13)
--- NOTE | 2020-08-06 16:17 | ED ---
General Adult HPI - General Source: patient Mode of arrival: ambulatory Limitations: no limitations <Nat Harrington - Last Filed: 08/06/20 16:56> <Eve Mora - Last Filed: 08/08/20 13:28> - General Chief complaint: Extremity Problem,Nontraumatic Stated complaint: arm pain Time Seen by Provider: 08/06/20 16:07 - History of Present Illness Initial comments: 40-year-old male patient presents to the emergency department today for evaluation of right shoulder pain. Patient states that he started having the pain a couple of days ago. States the pain worsens when he raises his arm above his head. 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 States that he does that consistently throughout his shift. Denies any numbness or tingling to the arm or hand. Denies taking any medication for pain. Denies any known injury or fall. Denies history of shoulder injury. Patient denies any headache, neck pain, back pain, chest pain, shortness of breath, dizziness, weakness, abdominal pain, nausea, vomiting, or difficulties with bowel movements or urination. (Nat Harrington) - Related Data Previous Rx's Medication Instructions Recorded Ibuprofen [Motrin] 800 mg PO Q6HR #30 tab 07/03/20 predniSONE 40 mg PO DAILY 5 Days #20 tab 07/03/20 Ibuprofen [Motrin] 600 mg PO Q8HR PRN #30 tab 08/06/20 Allergies Allergy/AdvReac Type Severity Reaction Status Date / Time No Known Allergies Allergy Verified 08/06/20 16:03 Review of Systems ROS Other: All systems not noted in ROS Statement are negative. <Nat Harrington - Last Filed: 08/06/20 16:56> ROS Other: All systems not noted in ROS Statement are negative. <Eve Mora - Last Filed: 08/08/20 13:28> ROS Statement: Those systems with pertinent positive or pertinent negative responses have been documented in the HPI. Past Medical History Past Medical History: No Reported History Additional Past Medical History / Comment(s): chronic back pain History of Any Multi-Drug Resistant Organisms: None Reported Past Surgical History: No Surgical Hx Reported Additional Past Surgical History / Comment(s): abscess removed from testicles Past Psychological History: No Psychological Hx Reported Smoking Status: Current some day smoker Past Alcohol Use History: Occasional Past Drug Use History: Marijuana <Nat Harrington - Last Filed: 08/06/20 16:56> General Exam Limitations: no limitations General appearance: alert, in no apparent distress, other (Physical well- developed, well-nourished adult male patient in no acute distress. Vital signs upon presentation are temperature 97.5F, pulse 71, respirations 18, blood pressure 109/73, pulse ox 100% on room air.) Respiratory exam: Present: normal lung sounds bilaterally. Absent: respiratory distress, wheezes, rales, rhonchi, stridor Cardiovascular Exam: Present: regular rate, normal rhythm, normal heart sounds. Absent: systolic murmur, diastolic murmur, rubs, gallop, clicks Extremities exam: Present: normal inspection, full ROM, normal capillary refill, other (Skin to the right arm is pink, warm, dry. Cap refill less than 3 seconds. Radial pulses 2+ and equal bilaterally. No joint tenderness, erythema, or swelling noted.). Absent: tenderness, pedal edema, joint swelling, calf tenderness Neurological exam: Present: alert, oriented X3, CN II-XII intact Psychiatric exam: Present: normal affect, normal mood Skin exam: Present: warm, dry, intact, normal color. Absent: rash <Nat Harrington - Last Filed: 08/06/20 16:56> Course Vital Signs 08/06/20 08/06/20 08/06/20 16:01 17:03 17:32 Temperature 97.5 F L 97.5 F L Pulse Rate 71 71 Respiratory 18 18 18 Rate Blood Pressure 109/73 109/73 O2 Sat by Pulse 100 100 Oximetry Medical Decision Making - Radiology Data Radiology results: report reviewed, image reviewed <Nat Harrington - Last Filed: 08/06/20 16:56> <Eve Mora - Last Filed: 08/08/20 13:28> - Medical Decision Making 40-year-old male patient presents to the emergency department today for evaluation of right shoulder pain. Patient states been bothering him for the last couple of days. States he does a repetitive job at work where he pulls down approximately 5055 pounds all day long. Physical examination is unremarkable. No swelling to the arm, no joint swelling or erythema. Neurovascular status is intact. X-rays negative. He'll be given ibuprofen discharged home to follow-up with the primary care physician for recheck in 1-2 days. Return parameters discussed in detail. He verbalizes understanding and agrees with this plan. My attending is Dr. Mora. (Nat Harrington) I was available for consultation in the emergency department. The history and physical exam were done by the midlevel provider. I was consulted for this patients care. I reviewed the case with the midlevel provider and based on their presentation of the patient, I agree with the assessment, medical decision making and plan of care as documented. Chart was dictated using [employer] dictation software. Attempts were made to correct any dictation errors however some typographical errors may persist. Patient was seen during a national state of emergency due to the Covid-19 pandemic. (Eve Mora) - Radiology Data 3 views of the right shoulders obtained. Report was reviewed in its entirety. Impression by Dr. Vigil shows normal right shoulder exam (Nat Harrington) Disposition Is patient prescribed a controlled substance at d/c from ED?: No Time of Disposition: 16:51 <Nat Harrington - Last Filed: 08/06/20 16:56> <Eve Mora - Last Filed: 08/08/20 13:28> Clinical Impression: Right shoulder injury Disposition: HOME SELF-CARE Condition: Good Instructions (If sedation given, give patient instructions): Shoulder Pain (ED) Additional Instructions: Take anti-inflammatory medication for the right shoulder pain. Follow-up with orthopedics if symptoms aren't improved over the next 1-2 days. Return to the emergency department for any new, worsening, or concerning symptoms. Prescriptions: Ibuprofen [Motrin] 600 mg PO Q8HR PRN #30 tab PRN Reason: Pain Referrals: None,Stated [Primary Care Provider] - 1-2 days
--- NOTE | 2020-08-06 16:46 | XR ---
EXAMINATION TYPE: XR shoulder complete RT DATE OF EXAM: 08/06/2020 COMPARISON: NONE HISTORY: Pain TECHNIQUE: 3 views FINDINGS: I see no fracture nor dislocation. Joint spaces are normal. There are no pathologic calcifi cations. IMPRESSION: Normal right shoulder exam.
== END 2020-08-06 17:33 | disposition home or self-care (01) ==
LOC: EC 16:00
DX: S49.91XA Unspecified injury of right shoulder and upper arm, initial encounter (principal); F17.200 Nicotine dependence, unspecified, uncomplicated; F12.90 Cannabis use, unspecified, uncomplicated; W22.8XXA Striking against or struck by other objects, initial encounter; Y99.0 Civilian activity done for income or pay; Z90.79 Acquired absence of other genital organ(s)
CPT/HCPCS: 73030; 99283; 96372; J1885

== ENCOUNTER → 2020-09-12 | Outpatient (CLI) | payer BC | END | disposition home or self-care (01) | LOC: LABWHC1 14:00 | PROVIDERS: ATTEND Emergency Medicine | DX: Z20.822 Contact with and (suspected) exposure to COVID-19 (principal) | CPT/HCPCS: U0003; C9803; U0005 ==

== ENCOUNTER 2021-03-08 12:14 | Emergency (ER) | payer OTHER ==
[2021-03-08] MEDS ORDERED: SULFAMETH-TMP DS STARTER PACK 2 TAB BTL PO STA (13:49)
[2021-03-08] MEDS ORDERED: CEPHALEXIN 500MG STARTER PACK 4 CAP BTL PO STA (13:49)
[2021-03-08] MEDS ORDERED: KETOROLAC 15 MG/ML 1 ML VIAL IM STA (13:50)
[2021-03-08] MEDS ORDERED: ACET/COD 300 MG/30 MG STARTER PACK 6 TAB BTL PO STA (13:50)
--- NOTE | 2021-03-08 13:52 | ED ---
Skin/Abscess/FB HPI - General Chief complaint: Skin/Abscess/Foreign Body Stated complaint: possible spider bite, lip swelling Time Seen by Provider: 03/08/21 13:32 Source: patient Mode of arrival: ambulatory Limitations: no limitations - History of Present Illness Initial comments: 40 year-old male patient presents to the emergency department for evaluation of infection to the face. Patient states yesterday he had what he thought was an ingrown hair or pimple on his chin. States that he squeezed it yesterday and got a small amount of drainage. He applied ice before he went to bed and when he woke this morning the area was red and swollen. States that symptoms did improve somewhat after letting hot water run over it. 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 States he did mow his mother's lawn recently and is unsure if he was bit by something. He denies any itching to the area. Denies any fever or chills. Denies nausea or vomiting. Denies history of IV drug use or other chronic medical conditions. - Related Data Previous Rx's Medication Instructions Recorded Ibuprofen [Motrin] 800 mg PO Q6HR #30 tab 07/03/20 predniSONE 40 mg PO DAILY 5 Days #20 tab 07/03/20 Ibuprofen [Motrin] 600 mg PO Q8HR PRN #30 tab 08/06/20 Cephalexin [Keflex] 500 mg PO Q6HR #40 cap 03/08/21 Ibuprofen [Motrin] 600 mg PO Q8HR PRN #30 tab 03/08/21 Sulfamethoxazole/Trimethoprim 1 each PO BID #20 tablet 03/08/21 [Bactrim DS 800-160 mg] Allergies Allergy/AdvReac Type Severity Reaction Status Date / Time No Known Allergies Allergy Verified 03/08/21 12:36 Review of Systems ROS Statement: Those systems with pertinent positive or pertinent negative responses have been documented in the HPI. ROS Other: All systems not noted in ROS Statement are negative. Past Medical History Past Medical History: No Reported History Additional Past Medical History / Comment(s): chronic back pain History of Any Multi-Drug Resistant Organisms: None Reported Past Surgical History: No Surgical Hx Reported Additional Past Surgical History / Comment(s): abscess removed from testicles Past Psychological History: No Psychological Hx Reported Smoking Status: Current some day smoker Past Alcohol Use History: Occasional Past Drug Use History: Marijuana General Exam Limitations: no limitations General appearance: alert, in no apparent distress, other (This is a well- developed, well-nourished adult male patient in no acute distress. Vital signs upon presentation are temperature 98.8F, pulse 80, respirations 19, blood pressure 141/98, pulse ox 98% on room air.) Respiratory exam: Present: normal lung sounds bilaterally. Absent: respiratory distress, wheezes, rales, rhonchi, stridor Cardiovascular Exam: Present: regular rate, normal rhythm, normal heart sounds. Absent: systolic murmur, diastolic murmur, rubs, gallop, clicks GI/Abdominal exam: Present: soft, normal bowel sounds. Absent: distended, tenderness, guarding, rebound, rigid Neurological exam: Present: alert Psychiatric exam: Present: normal affect, normal mood Skin exam: Present: warm, dry, intact, normal color, other (There is induration, erythema, soft tissue swelling noted to the right side of the chin, swelling extends up to the lower lip. No area of fluctuance. No drainage noted.). Absent: rash Course Vital Signs 03/08/21 03/08/21 12:32 14:28 Temperature 98.8 F 97.8 F Pulse Rate 80 78 Respiratory 19 18 Rate Blood Pressure 141/98 143/78 O2 Sat by Pulse 98 98 Oximetry Medical Decision Making - Medical Decision Making 40-year-old male patient presents to the emergency department today for evaluation of infection to the face. Physical examination reveals soft tissue swelling, induration, erythema to the right side of the chin with swelling extending into the lower lip. There is no fluctuance or evidence of drainable abscess at this time. Patient does have history of MRSA. This could be early abscess versus cellulitis. We will treat with Keflex and Bactrim. He is given Tylenol for codeine starter pack. Prescription for ibuprofen. He is instructed to follow-up with his primary care physician for recheck in 1-2 days. Return parameters were discussed in detail. He verbalizes understanding and agrees with this plan. My attending is Dr. Espinosa. Disposition Clinical Impression: Facial abscess, Facial cellulitis Disposition: HOME SELF-CARE Condition: Good Instructions (If sedation given, give patient instructions): Cellulitis (ED), Abscess (ED) Additional Instructions: Apply warm compresses to the area 10 minutes at a time several times per day. Take antibiotics as prescribed. Take pain medication sparingly as needed for severe pain. Take ibuprofen in addition to this. Follow-up with her primary care physician for recheck in 1-2 days. Return to the emergency department for any new, worsening, or concerning symptoms. Prescriptions: Sulfamethoxazole/Trimethoprim [Bactrim DS 800-160 mg] 1 each PO BID #20 tablet Cephalexin [Keflex] 500 mg PO Q6HR #40 cap Ibuprofen [Motrin] 600 mg PO Q8HR PRN #30 tab PRN Reason: Pain Is patient prescribed a controlled substance at d/c from ED?: No Referrals: None,Stated [Primary Care Provider] - 1-2 days Time of Disposition: 13:51
[2021-03-08 14:28] VITALS: BP 143/78; PULSE 78; RESP 18; TEMP 97.8
== END 2021-03-08 14:28 | disposition home or self-care (01) ==
LOC: EC 12:14
DX: L02.01 Cutaneous abscess of face (principal); L03.211 Cellulitis of face; F17.200 Nicotine dependence, unspecified, uncomplicated
CPT/HCPCS: 99283; 96372; J1885

== ENCOUNTER 2021-03-12 15:14 | Emergency (ER) | payer OTHER ==
[2021-03-12] MEDS ORDERED: CLINDAMYCIN 150 MG CAP PO STA (16:21)
--- NOTE | 2021-03-12 16:23 | ED ---
Skin/Abscess/FB HPI - General Chief complaint: Skin/Abscess/Foreign Body Stated complaint: PT states MRSA-revisit Time Seen by Provider: 03/12/21 15:52 Source: patient Mode of arrival: ambulatory Limitations: no limitations - History of Present Illness Initial comments: Prabhu is a 40-year-old male presents the ER today for evaluation of a skin eruption. Patient was seen on the third of this month diagnosis skin infection and small non-drainable abscess on the right side of the chin, he was prescribed Bactrim which she reports he's been compliant with.. Patient reports that since that time he has developed a skin eruption all over his entire body. He reports pruritus all over. Patient admits to having some OCD type behaviors including showering twice daily. He does pick at his skin and scratch quite often. His son was diagnosed with a MRSA infection yesterday and he is concerned he could have infection as well. - Related Data Previous Rx's Medication Instructions Recorded Ibuprofen [Motrin] 800 mg PO Q6HR #30 tab 07/03/20 predniSONE 40 mg PO DAILY 5 Days #20 tab 07/03/20 Ibuprofen [Motrin] 600 mg PO Q8HR PRN #30 tab 08/06/20 Cephalexin [Keflex] 500 mg PO Q6HR #40 cap 03/08/21 Ibuprofen [Motrin] 600 mg PO Q8HR PRN #30 tab 03/08/21 Sulfamethoxazole/Trimethoprim 1 each PO BID #20 tablet 03/08/21 [Bactrim DS 800-160 mg] Clindamycin HCl 300 mg PO Q12HR #14 cap 03/12/21 Allergies Allergy/AdvReac Type Severity Reaction Status Date / Time No Known Allergies Allergy Verified 03/12/21 15:19 Review of Systems ROS Statement: Those systems with pertinent positive or pertinent negative responses have been documented in the HPI. ROS Other: All systems not noted in ROS Statement are negative. Past Medical History Past Medical History: No Reported History Additional Past Medical History / Comment(s): chronic back pain History of Any Multi-Drug Resistant Organisms: None Reported Past Surgical History: No Surgical Hx Reported Additional Past Surgical History / Comment(s): abscess removed from testicles Past Psychological History: No Psychological Hx Reported Smoking Status: Current some day smoker Past Alcohol Use History: Occasional Past Drug Use History: Marijuana General Exam - General Exam Comments Initial Comments: Physical Exam GENERAL: Patient is well-developed and well-nourished. Patient is nontoxic and well- hydrated and is in no distress. HENT: Normocephalic, Atraumatic. EYES: PERRL, EOMI PULMONARY: Unlabored respirations. CARDIOVASCULAR: RRR ABDOMEN: Soft and nontender with normal bowel sounds. SKIN: Small abscess with surrounding cellulitis approximately once an meters diameter on the right side of the chin, this is actively draining purulent fluid There are excoriated blisters all over the entire body, upper and lower extremities trunk and back. Patient reports that it spares his genital area No oral lesions : Deferred NEUROLOGIC: Patient is alert and oriented x3. Moving all extremities spontaneously MUSCULOSKELETAL: Normal extremities with adequate strength and full range of motion. No lower extremity swelling or edema. No calf tenderness. PSYCHIATRIC: Normal psychiatric evaluation. Limitations: no limitations Course Vital Signs 03/12/21 03/12/21 15:15 17:25 Temperature 98.3 F 98.1 F Pulse Rate 109 H 81 Respiratory 19 18 Rate Blood Pressure 167/98 133/88 O2 Sat by Pulse 97 96 Oximetry Medical Decision Making - Medical Decision Making The patient was seen and evaluated history is obtained from patient. Patient with skin infection consistent with MRSA, he was appropriately treated with Bactrim however he is developed a rash over his entire body which patient was concerned his infection however I suspect the patient is having a reaction to t he Bactrim. Will obtain labs, discontinue Bactrim start clindamycin. Labs were obtained, patient does not have any leukocytosis. I do suspect that his skin eruption is secondary to a drug ALLERGY I did advise them that he is likely ALLERGIC to Bactrim and not to take Bactrim or related medications in the future. I prescribed him clindamycin for MRSA infection. Patient discharged home in stable condition. - Lab Data Result diagrams: 03/12/21 16:49 03/12/21 16:49 Lab Results 03/12/21 03/12/21 Range/Units 16:49 16:49 WBC 8.2 (3.8-10.6) k/uL RBC 5.37 (4.30-5.90) m/uL Hgb 16.8 (13.0-17.5) gm/dL Hct 50.0 (39.0-53.0) % MCV 93.3 (80.0-100.0) fL MCH 31.3 (25.0-35.0) pg MCHC 33.6 (31.0-37.0) g/dL RDW 13.1 (11.5-15.5) % Plt Count 280 (150-450) k/uL MPV 7.5 Neutrophils % 70 % Lymphocytes % 18 % Monocytes % 6 % Eosinophils % 3 % Basophils % 1 % Neutrophils # 5.7 (1.3-7.7) k/uL Lymphocytes # 1.5 (1.0-4.8) k/uL Monocytes # 0.5 (0-1.0) k/uL Eosinophils # 0.2 (0-0.7) k/uL Basophils # 0.1 (0-0.2) k/uL Sodium 136 L (137-145) mmol/L Potassium 4.2 (3.5-5.1) mmol/L Chloride 102 (98-107) mmol/L Carbon Dioxide 18 L (22-30) mmol/L Anion Gap 16 mmol/L BUN 14 (9-20) mg/dL Creatinine 0.94 (0.66-1.25) mg/dL Est GFR (CKD-EPI)AfAm >90 (>60 ml/min/1.73 sqM) Est GFR (CKD-EPI)NonAf >90 (>60 ml/min/1.73 sqM) Glucose 95 (74-99) mg/dL Calcium 10.5 H (8.4-10.2) mg/dL Total Bilirubin 0.9 (0.2-1.3) mg/dL AST 95 H (17-59) U/L ALT 48 (4-49) U/L Alkaline Phosphatase 109 (38-126) U/L Total Protein 8.8 H (6.3-8.2) g/dL Albumin 5.1 H (3.5-5.0) g/dL Disposition Clinical Impression: Skin infection, Drug reaction, Facial abscess Disposition: HOME SELF-CARE Condition: Stable Prescriptions: Clindamycin HCl 300 mg PO Q12HR #14 cap Is patient prescribed a controlled substance at d/c from ED?: No Referrals: None,Stated [Primary Care Provider] - 1-2 days
[2021-03-12 17:03] LABS: Basophils # (A) 0.1 k/uL (0-0.2); Basophils % (A) 1 %; Eosinophils # (A) 0.2 k/uL (0-0.7); Eosinophils % (A) 3 %; HGB 16.8 gm/dL (13.0-17.5); Lymphocytes # (A) 1.5 k/uL (1.0-4.8); Lymphocytes % (A) 18 %; MCH 31.3 pg (25.0-35.0); MCHC 33.6 g/dL (31.0-37.0); MCV 93.3 fL (80.0-100.0); Mean Platelet Volume 7.5; Monocytes # (A) 0.5 k/uL (0-1.0); Monocytes % (A) 6 %; Neutrophils # (A) 5.7 k/uL (1.3-7.7); Neutrophils % (A) 70 %; Platelet Count 280 k/uL (150-450); RBC 5.37 m/uL (4.30-5.90); RDW 13.1 % (11.5-15.5); WBC 8.2 k/uL (3.8-10.6)
[2021-03-12 17:14] LABS: ALT 48 U/L (4-49); AST 95 U/L (17-59); African American GFR (CKD) >90 (>60 ml/min/1.73 sqM); Albumin 5.1 g/dL (3.5-5.0); Alkaline Phosphatase 109 U/L (38-126); Anion Gap 16 mmol/L; Blood Urea Nitrogen 14 mg/dL (9-20); Calcium 10.5 mg/dL (8.4-10.2); Carbon Dioxide 18 mmol/L (22-30); Chloride 102 mmol/L (98-107); Glucose 95 mg/dL (74-99); Non-African American GFR(CKD) >90 (>60 ml/min/1.73 sqM); Potassium 4.2 mmol/L (3.5-5.1); Sodium 136 mmol/L (137-145); Total Bilirubin 0.9 mg/dL (0.2-1.3); Total Protein 8.8 g/dL (6.3-8.2)
[2021-03-12 17:28] VITALS: BP 133/88; PULSE 81; RESP 18; TEMP 98.1
== END 2021-03-12 18:43 | disposition home or self-care (01) ==
LOC: EC 15:14
DX: L02.01 Cutaneous abscess of face (principal); L08.9 Local infection of the skin and subcutaneous tissue, unspecified; T36.8X5A Adverse effect of other systemic antibiotics, initial encounter; F17.200 Nicotine dependence, unspecified, uncomplicated; Z90.79 Acquired absence of other genital organ(s)
CPT/HCPCS: 36415; 80053; 85025; 87040; 99283

== ENCOUNTER 2021-06-23 01:55 | Emergency (ER) | payer OTHER ==
[2021-06-23 02:00] VITALS: RESP 20; TEMP 97.1
[2021-06-23] MEDS ORDERED: IBUPROFEN 600 MG STARTER PACK 4 TAB BTL PO STA (02:23)
[2021-06-23] MEDS ORDERED: hydrOXYzine pamoate 25 MG CAP PO STA (02:23)
--- NOTE | 2021-06-23 02:23 | ED ---
Skin/Abscess/FB HPI - General Chief complaint: Skin/Abscess/Foreign Body Stated complaint: Sores all over body Time Seen by Provider: 06/23/21 02:10 Source: patient Mode of arrival: ambulatory Limitations: no limitations - History of Present Illness Initial comments: 41 year-old male patient presents to the emergency department for evaluation of possible scabies. He believes he was exposed about a week ago. States that he started to gave generalized itching and then started to develop sores over his face. Reports scabs over his legs. He denies any alcohol or drug use. [place] fever, chills, nausea, or vomiting. States he does have history of MRSA. States his tetanus vaccine is up to date. - Related Data Previous Rx's Medication Instructions Recorded Ibuprofen [Motrin] 800 mg PO Q6HR #30 tab 07/03/20 predniSONE 40 mg PO DAILY 5 Days #20 tab 07/03/20 Ibuprofen [Motrin] 600 mg PO Q8HR PRN #30 tab 08/06/20 Cephalexin [Keflex] 500 mg PO Q6HR #40 cap 03/08/21 Ibuprofen [Motrin] 600 mg PO Q8HR PRN #30 tab 03/08/21 Sulfamethoxazole/Trimethoprim 1 each PO BID #20 tablet 03/08/21 [Bactrim DS 800-160 mg] Clindamycin HCl 300 mg PO Q12HR #14 cap 03/12/21 Ibuprofen [Motrin] 600 mg PO Q8HR PRN #30 tab 06/23/21 Permethrin 5% Cream [Elimite] 1 applic TOPICAL ONCE #60 gm 06/23/21 hydrOXYzine pamoate [Vistaril] 25 mg PO TID #15 capsule 06/23/21 Allergies Allergy/AdvReac Type Severity Reaction Status Date / Time No Known Allergies Allergy Verified 06/23/21 01:57 Review of Systems ROS Statement: Those systems with pertinent positive or pertinent negative responses have been documented in the HPI. ROS Other: All systems not noted in ROS Statement are negative. Past Medical History Past Medical History: No Reported History Additional Past Medical History / Comment(s): chronic back pain History of Any Multi-Drug Resistant Organisms: None Reported Past Surgical History: No Surgical Hx Reported Additional Past Surgical History / Comment(s): abscess removed from testicles Past Psychological History: No Psychological Hx Reported Smoking Status: Current some day smoker Past Alcohol Use History: Occasional Past Drug Use History: Marijuana General Exam Limitations: no limitations General appearance: alert, in no apparent distress, other (This is a well- developed, well-nourished adult male patient who is anxious.) Respiratory exam: Present: normal lung sounds bilaterally. Absent: respiratory distress, wheezes, rales, rhonchi, stridor Cardiovascular Exam: Present: regular rate, normal rhythm, normal heart sounds. Absent: systolic murmur, diastolic murmur, rubs, gallop, clicks Neurological exam: Present: alert, oriented X3, CN II-XII intact Psychiatric exam: Present: normal affect, normal mood Skin exam: Present: warm, dry, intact, normal color, rash (Did have scab rash over the bilateral thighs. Multiple scabs noted over the face. No swelling or surrounding erythema to suggest secondary infection.) Course Vital Signs 06/23/21 06/23/21 01:57 02:00 Temperature 97.1 F L Pulse Rate 121 H 77 Respiratory 20 20 Rate Blood Pressure 131/88 133/83 O2 Sat by Pulse 100 97 Oximetry Medical Decision Making - Medical Decision Making 41-year-old male patient presents to the emergency department today for evaluation of itching and rash. He was exposed to scabies about a week ago. Physical examination did reveal multiple scabbed lesions over the face with no signs of secondary infection. Also had many scabs over the bilateral thighs. Areas elevated though he is quite anxious. He'll be treated with permethrin due to known exposure to scabies. He is given Vistaril for itching. He is instructed to follow-up with the primary care physician for recheck in 1-2 days. Return parameters were discussed in detail. He verbalizes understanding and agrees with this plan. My attending is Dr. Hurley. Disposition Clinical Impression: Scabies exposure, Open facial wound Disposition: HOME SELF-CARE Condition: Good Instructions (If sedation given, give patient instructions): Scabies (ED) Additional Instructions: Use shampoo as directed. Take medication as needed for pain and itching. Follow-up with your primary care physician for recheck in 1-2 days. Return for any new, worsening, or concerning symptoms. Prescriptions: Permethrin 5% Cream [Elimite] 1 applic TOPICAL ONCE #60 gm Ibuprofen [Motrin] 600 mg PO Q8HR PRN #30 tab PRN Reason: Pain hydrOXYzine pamoate [Vistaril] 25 mg PO TID #15 capsule Is patient prescribed a controlled substance at d/c from ED?: No Referrals: None,Stated [Primary Care Provider] - 1-2 days Time of Disposition: 02:23
[2021-06-23 02:37] VITALS: BP 133/83; PULSE 77
== END 2021-06-23 02:37 | disposition home or self-care (01) ==
LOC: EC 01:55
DX: S01.80XA Unspecified open wound of other part of head, initial encounter (principal); Z20.7 Contact with and (suspected) exposure to pediculosis, acariasis and other infestations; F17.200 Nicotine dependence, unspecified, uncomplicated; X58.XXXA Exposure to other specified factors, initial encounter
CPT/HCPCS: 99283

== ENCOUNTER 2021-06-27 09:18 | Emergency (ER) | payer OTHER ==
[2021-06-27] MEDS ORDERED: LIDOCAINE VISCOUS 2% 15 ML CUP MUCOUS MEM ONE (10:04)
[2021-06-27] MEDS ORDERED: SULFAMETHOX-TMP 800-160MG 1 EACH TAB PO STA (10:05)
[2021-06-27 10:16] VITALS: BP 157/87; PULSE 92; RESP 18; TEMP 98.7
--- NOTE | 2021-06-27 10:20 | ED ---
Skin/Abscess/FB HPI - General Stated complaint: vomiting/bed bugs Time Seen by Provider: 06/27/21 10:10 - History of Present Illness Initial comments: 41-year-old male presents emergency Department with reports that he saw bedbugs in his mouth and crawling all over his body. Patient was seen in the emergency department 4 days ago for similar complaints after he was exposed to scabies. He admits that he use the cream and Atarax as directed and is almost out of the medications. States he continues to have symptoms. He has had itchiness. Feels as if something is constantly falling off of him. He has sores all over his body does admit to previous history of MRSA. Patient is continuously gagging himself to try and remove the "bugs" from his mouth. No visible insects identified. He denies any psychiatric or drug use history. The remainder of the HPI is limited due to the patient's erratic behavior - Related Data Previous Rx's Medication Instructions Recorded Ibuprofen [Motrin] 800 mg PO Q6HR #30 tab 07/03/20 predniSONE 40 mg PO DAILY 5 Days #20 tab 07/03/20 Ibuprofen [Motrin] 600 mg PO Q8HR PRN #30 tab 08/06/20 Cephalexin [Keflex] 500 mg PO Q6HR #40 cap 03/08/21 Ibuprofen [Motrin] 600 mg PO Q8HR PRN #30 tab 03/08/21 Sulfamethoxazole/Trimethoprim 1 each PO BID #20 tablet 03/08/21 [Bactrim DS 800-160 mg] Clindamycin HCl 300 mg PO Q12HR #14 cap 03/12/21 Ibuprofen [Motrin] 600 mg PO Q8HR PRN #30 tab 06/23/21 Permethrin 5% Cream [Elimite] 1 applic TOPICAL ONCE #60 gm 06/23/21 hydrOXYzine pamoate [Vistaril] 25 mg PO TID #15 capsule 06/23/21 Permethrin 5% Cream [Elimite] 1 applic TOPICAL ONCE #60 gm 06/27/21 Sulfamethox-Tmp 800-160Mg [Bactrim 2 each PO Q12HR #28 tab 06/27/21 Ds] hydrOXYzine HCL [Atarax] 10 mg PO TID PRN #30 tab 06/27/21 Allergies Allergy/AdvReac Type Severity Reaction Status Date / Time No Known Allergies Allergy Verified 06/23/21 01:57 Review of Systems ROS Statement: Those systems with pertinent positive or pertinent negative responses have been documented in the HPI. ROS Other: All systems not noted in ROS Statement are negative. Past Medical History Past Medical History: No Reported History Additional Past Medical History / Comment(s): chronic back pain History of Any Multi-Drug Resistant Organisms: None Reported Past Surgical History: No Surgical Hx Reported Additional Past Surgical History / Comment(s): abscess removed from testicles Past Psychological History: No Psychological Hx Reported Smoking Status: Current some day smoker Past Alcohol Use History: Occasional Past Drug Use History: Marijuana General Exam General appearance: alert, anxious Head exam: Present: atraumatic, normocephalic, normal inspection Eye exam: Present: conjunctival injection ENT exam: Present: mucous membranes moist, other (excoriations to the posterior pharynx - no active bleeding. No lesions, insects identified) Respiratory exam: Present: normal lung sounds bilaterally. Absent: respiratory distress, wheezes, rales, rhonchi, stridor Cardiovascular Exam: Present: regular rate, normal rhythm, normal heart sounds. Absent: systolic murmur, diastolic murmur, rubs, gallop, clicks Neurological exam: Present: oriented X3 Psychiatric exam: Present: anxious, other (compulsively distracted by the thought of bed bugs in his mouth) Skin exam: Present: warm, intact, other (multiple ulcerative lesions on thighs, genitals, arms consistent with self inflicted "picking" lesions) Course Vital Signs 06/27/21 10:09 Temperature 98.7 F Pulse Rate 92 Respiratory 18 Rate Blood Pressure 157/87 O2 Sat by Pulse 99 Oximetry Medical Decision Making - Medical Decision Making Upon arrival patient is placed into room 14. A thorough history and physical exam was performed. There are examination does reveal multiple areas of ulceration are consistent with self picking. No visible bedbugs. Patient was decontaminated. As the patient does have a history of MRSA I did recommend that he be started on Bactrim due to the ulcerative lesions seen on his legs and genitals. I will also prescribe the patient another dose of permethrin cream as he did have exposure and has concerning lesions in between his finger webs. Patient will be discharged home at this time and given follow-up information for the comes IV clinic. Instructed to follow-up for further treatment options. Return to the emergency room for any worsening symptoms. Patient was discharged home in stable condition into his mothers care who is present in the ED with t he patient. Disposition Clinical Impression: Scabies exposure, Hx MRSA infection Disposition: HOME SELF-CARE Condition: Stable Instructions (If sedation given, give patient instructions): MRSA (Methicillin- Resistant Staphylococcus Aureus) (ED), Scabies (ED) Additional Instructions: Please follow-up with the dermatology clinic for biopsy of your skin lesions. Return to the emergency room for any new or worsening symptoms Prescriptions: hydrOXYzine HCL [Atarax] 10 mg PO TID PRN #30 tab PRN Reason: Itching Sulfamethox-Tmp 800-160Mg [Bactrim Ds] 2 each PO Q12HR #28 tab Permethrin 5% Cream [Elimite] 1 applic TOPICAL ONCE #60 gm Is patient prescribed a controlled substance at d/c from ED?: No Referrals: None,Stated [Primary Care Provider] - 1-2 days Abdoulaye Vasquez MD [STAFF PHYSICIAN] - 1-2 days Time of Disposition: 10:20
== END 2021-06-27 10:36 | disposition home or self-care (01) ==
LOC: EC 09:18
DX: F17.200 Nicotine dependence, unspecified, uncomplicated (principal); Z20.7 Contact with and (suspected) exposure to pediculosis, acariasis and other infestations; Z86.14 Personal history of Methicillin resistant Staphylococcus aureus infection
CPT/HCPCS: 99282

== ENCOUNTER 2024-07-04 10:58 | Emergency (ER) | payer OTHER ==
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
[2024-07-04] MEDS: IBUPROFEN 800 MG TAB PO STA (11:25)
--- NOTE | 2024-07-04 11:57 | XR ---
EXAMINATION TYPE: XR hand complete RT DATE OF EXAM: 07/04/2024 COMPARISON: NONE CLINICAL INDICATION: Male, 44 years old with pain after history of right hand injury; TECHNIQUE: 3 views FINDINGS: There is chronic appearing palmar angulation deformity at the fifth metacarpal neck and dis elvis shaft. Adjacent soft tissue swelling. There is some dorsal and ulnar sided soft tissue swelling a t the level of the CMC joints. Some joint overlap at the fifth CMC joint on the AP view and possible slight dorsal subluxation here on the lateral view with an adjacent 6 mm ossific density. IMPRESSION: 1. Appearance of an old healed boxer's fracture deformity of the fifth metacarpal. 2. However, there is possible dorsal subluxation at the fifth CMC joint with suggestion of a dorsally located 6 mm ossific density. An impaction fracture with fragment from the hamate bone is not exclud ed. [facility], Workstation: [facility], 07/04/2024 11:55 AM
[2024-07-04 12:50] VITALS: BP 145/99; PULSE 86; RESP 17; TEMP 98.4
== END 2024-07-04 12:50 | disposition home or self-care (01) ==
LOC: EC 10:58
DX: S62.91XA Unspecified fracture of right hand, initial encounter for closed fracture (principal); F17.200 Nicotine dependence, unspecified, uncomplicated; W22.01XA Walked into wall, initial encounter
CPT/HCPCS: 29125; 99283